=== PATIENT | female | born 1985 | race African-American/Black ===

== ENCOUNTER 2018-05-11 01:20 | Emergency (ER) | payer OTHER ==
[~2018-05-11] VITALS: Ht 165.1 cm; Wt 94.0 kg
[2018-05-11 01:22] VITALS: BP 139/80
[2018-05-11] MEDS ORDERED: MVI, ADULT NO.4 WITH VIT K 10 ML, FOLIC ACID SYRINGE for ER 1 MG, THIAMINE 100 MG in IV... IV ONE ×4 (01:30)
--- NOTE | 2018-05-11 01:30 | ED.ADGEN ---
Adult General Chief Complaint Chief Complaint ".. I was getting ready for bed.. and just started feeling like I was having an allergic reaction... I use my flonase nasal... and took some Ibuprofen... but I got to feeling worse..."..." I feel weak all over.. shaky like... " HPI HPI Patient is a 33 year old female who presents with above hx and complaints of felling bad. Pt. complaints of sore throat and like having allergy or allergic reaction. Pt. has been drinking at least 3 alcohol drinks a night for past 3 months. Pt. just stopped drinking tonight. Pt. has hx of allergies- seasonal. Pt. follows with Dr. South. Pt. has taken Flonase and Ibuprofen previously. Pt. has never stopped alcohol use abruptly before. Pt. denies any new drugs, foods or soaps. Pt. states she feels very agitated, shaking and weak. .Pt. does have hx of past anxiety disorder and insomnia. Review of Systems Review of Systems Constitutional: Denies fever or chills [] Eyes: Denies change in visual acuity, redness, or eye pain [] HENT: Complaints of nasal congestion . Complaints sore throat [] Respiratory: Denies cough or shortness of breath [] Cardiovascular: No additional information not addressed in HPI [] GI: Denies abdominal pain, , vomiting, bloody stools or diarrhea []Complaints of nausea. : Denies dysuria or hematuria [] Musculoskeletal: Denies back pain or joint pain [] Integument: Denies rash or skin lesions [] Neurologic: Complaints headache. Denies focal weakness or sensory changes [] Endocrine: Denies polyuria or polydipsia [] All other systems were reviewed and found to be within normal limits, except as documented in this note. Family History Family History Non-contributory Current Medications Current Medications Current Medications Medications (Trade) Dose Ordered Sig/Ayan Start Time Stop Time Status Last Admin Dose Admin Famotidine (Pepcid Vial) 20 mg 1X ONCE 05/11/18 02:30 05/11/18 02:31 DC Folic Acid (FOLIC ACID SYRINGE for ER) 5 mg STK-MED ONCE 05/11/18 01:35 05/11/18 01:36 DC Lorazepam (Ativan) 2 mg 1X ONCE 05/11/18 02:30 05/11/18 02:31 DC 05/11/18 02:25 2 MG Methylprednisolone Sodium Succinate (SOLU-Medrol 125MG VIAL) 125 mg 1X ONCE 05/11/18 02:30 05/11/18 02:31 DC 05/11/18 02:26 125 MG Multivitamins/ Minerals (Infuvite Adult) 10 ml STK-MED ONCE 05/11/18 01:35 05/11/18 01:36 DC Multivitamins/ Minerals 10 ml/ Folic Acid 1 mg/ Thiamine HCl 100 mg/Sodium Chloride 1,011.1 ml @ 1,000 mls/ hr 1X ONCE 05/11/18 01:30 05/11/18 02:30 DC 05/11/18 01:30 1,000 MLS/HR Potassium Chloride (KCl Oral Soln) 40 meq 1X ONCE 05/11/18 03:15 05/11/18 03:16 DC 05/11/18 03:13 40 MEQ Thiamine HCl 200 mg STK-MED ONCE 05/11/18 01:35 05/11/18 01:36 DC See Nursing for home meds Allergies Allergies Allergies Coded Allergies Type Severity Reaction Last Updated Verified No Known Drug Allergies 05/11/18 No Physical Exam Physical Exam Constitutional: , in acute emotional distress, non-toxic appearance. [] HENT: Normocephalic, atraumatic, bilateral external ears normal, oropharynx moist, no oral exudates, nose mild rhinorrhea. Eyes: PERRLA, EOMI, conjunctiva normal, no discharge. [] Neck: Normal range of motion, no tenderness, supple, no stridor. [] Cardiovascular: Tachycardia Heart rate regular rhythm, no murmur [] Lungs & Thorax: Bilateral breath sounds equal at apex no significant wheezing on auscultation [] Abdomen: Bowel sounds normal, soft, no tenderness, no masses, no pulsatile masses. Obese. Skin: Warm, dry, no erythema, no rash. [] Back: No tenderness, no CVA tenderness. [] Extremities: No tenderness, no cyanosis, no clubbing, ROM intact, no edema. [] Neurologic: Alert and oriented X 3, normal motor function, normal sensory function, no focal deficits noted. [] Psychologic: Affect very anxious, judgement normal, mood normal. [] Current Patient Data Vital Signs Vital Signs Date Time Temp Pulse Resp B/P (MAP) Pulse Ox O2 Delivery O2 Flow Rate FiO2 05/11/18 02:30 74 95 05/11/18 01:22 98.2 16 Room Air Lab Results Laboratory Tests Test 05/11/18 01:32 05/11/18 01:53 05/11/18 02:01 05/11/18 02:15 POC Urine HCG, Qualitative hcg negative (Negative) White Blood Count 7.3 x10^3/uL (4.0-11.0) Red Blood Count 4.58 x10^6/uL (3.50-5.40) Hemoglobin 14.1 g/dL (12.0-15.5) Hematocrit 40.9 % (36.0-47.0) Mean Corpuscular Volume 89 fL (79-100) Mean Corpuscular Hemoglobin 31 pg (25-35) Mean Corpuscular Hemoglobin Concent 34 g/dL (31-37) Red Cell Distribution Width 13.2 % (11.5-14.5) Platelet Count 299 x10^3/uL (140-400) Neutrophils (%) (Auto) 49 % (31-73) Lymphocytes (%) (Auto) 37 % (24-48) Monocytes (%) (Auto) 9 % (0-9) Eosinophils (%) (Auto) 5 % (0-3) H Basophils (%) (Auto) 1 % (0-3) Neutrophils # (Auto) 3.6 x10^3uL (1.8-7.7) Lymphocytes # (Auto) 2.7 x10^3/uL (1.0-4.8) Monocytes # (Auto) 0.6 x10^3/uL (0.0-1.1) Eosinophils # (Auto) 0.3 x10^3/uL (0.0-0.7) Basophils # (Auto) 0.1 x10^3/uL (0.0-0.2) Prothrombin Time 10.4 SEC (9.4-11.4) Prothrombin Time INR 1.0 (0.9-1.1) PTT 26 SEC (23-33) Sodium Level 136 mmol/L (136-145) Potassium Level 3.3 mmol/L (3.5-5.1) L Chloride Level 102 mmol/L (98-107) Carbon Dioxide Level 29 mmol/L (21-32) Anion Gap 5 (6-14) L Blood Urea Nitrogen 9 mg/dL (7-20) Creatinine 0.7 mg/dL (0.6-1.0) Estimated GFR (Cockcroft-Gault) 115.2 Glucose Level 99 mg/dL (70-99) Calcium Level 8.8 mg/dL (8.5-10.1) Magnesium Level 2.0 mg/dL (1.8-2.4) Ammonia 11 mcmol/L (11-34) Creatine Kinase 113 U/L (26-192) Creatine Kinase MB (Mass) < 0.5 ng/mL (0.0-3.6) Creatine Kinase MB Relative Index 0.4 % (0-4) Troponin I Quantitative < 0.017 ng/mL (0-0.055) MH-Rjw-Z-Type Natriuretic Peptide 54 pg/mL (0-124) Ethyl Alcohol Level < 10 mg/dL (0-10) Group A Streptococcus Rapid Negative (NEGATIVE) Urine Collection Type Unknown Urine Color Yellow Urine Clarity Clear Urine pH 7.0 Urine Specific [place] 1.010 Urine Protein Neg (NEG-TRACE) Urine Glucose (UA) Neg mg/dL (NEG) Urine Ketones (Stick) Neg mg/dL (NEG) Urine Blood Trace (NEG) Urine Nitrite Neg (NEG) Urine Bilirubin Neg (NEG) Urine Urobilinogen Dipstick 0.2 mg/dL (0.2 mg/dL) Urine Leukocyte Esterase Neg (NEG) Urine RBC Occ /HPF (0-2) Urine WBC Occ /HPF (0-4) Urine Squamous Epithelial Cells Few /LPF Urine Bacteria 0 /HPF (0-FEW) Urine Opiates Screen Neg (NEG) Urine Methadone Screen Neg (NEG) Urine Barbiturates Neg (NEG) Urine Phencyclidine Screen Neg (NEG) Urine Amphetamine/Methamphetamine Neg (NEG) Urine Benzodiazepines Screen Neg (NEG) Urine Cocaine Screen Neg (NEG) Urine Cannabinoids Screen Neg (NEG) Urine Ethyl Alcohol Neg (NEG) EKG EKG My interpretation EKG shows a sinus rhythm at 89 bpm. No findings of acute abnormalities. Radiology/Procedures Radiology/Procedures My interpretation chest x-ray shows no acute cardio pulmonary findings. Slightly enlarge cardiac silhouette. Some blunting Lt. riojas phrenic angle.[] Course & Med Decision Making Course & Med Decision Making Pertinent Labs and Imaging studies reviewed. (See chart for details). Discussed risks of chronic alcohol use. Patient encouraged to take a multivitamin and B complex. Patient currently declines admission wishes to be discharged home. Patient follow-up primary care. Review ED labs. Patient encourage return if any concerns. [] Final Impression Final Impression 1. Possible allergic reaction- 2. Suspect alcohol withdrawal presentation 3. Hypokalemia 4. History of anxiety disorder.[] Dragon Disclaimer Dragon Disclaimer This electronic medical record was generated, in whole or in part, using a voice recognition dictation system. ANA PABLO MD May 11, 2018 01:30
[2018-05-11] MEDS ORDERED: THIAMINE 200 MG/2 ML VIAL. IV ONE (01:35)
[2018-05-11] MEDS ORDERED: MVI, ADULT NO.4 WITH VIT K 10 ML VIAL IV ONE (01:35)
[2018-05-11] MEDS ORDERED: FOLIC ACID 5 MG/ML SYRINGE for ER IV ONE (01:35)
--- NOTE | 2018-05-11 01:43 | EKG ---
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
[2018-05-11 02:12] LABS: BASO # 0.1 x10^3/uL (0.0-0.2); BASO % 1 % (0-3); EOS # 0.3 x10^3/uL (0.0-0.7); EOS % 5 % (0-3); HEMATOCRIT 40.9 % (36.0-47.0); HEMOGLOBIN 14.1 g/dL (12.0-15.5); LYMPH # 2.7 x10^3/uL (1.0-4.8); LYMPH % 37 % (24-48); MEAN CORPUSCULAR HEMOGLOBIN 31 pg (25-35); MEAN CORPUSCULAR HGB CONC 34 g/dL (31-37); MEAN CORPUSCULAR VOLUME 89 fL (79-100); MONO # 0.6 x10^3/uL (0.0-1.1); MONO % 9 % (0-9); NEUT # 3.6 x10^3uL (1.8-7.7); NEUT % 49 % (31-73); PLATELET COUNT 299 x10^3/uL (140-400); RED BLOOD COUNT 4.58 x10^6/uL (3.50-5.40); RED CELL DISTRIBUTION WIDTH 13.2 % (11.5-14.5); WHITE BLOOD COUNT 7.3 x10^3/uL (4.0-11.0)
[2018-05-11] MEDS ORDERED: FAMOTIDINE 20 MG/2 ML VIAL IVP ONE (02:30)
[2018-05-11] MEDS ORDERED: LORazepam 2 MG/ML VIAL IV ONE (02:30)
[2018-05-11] MEDS ORDERED: methylPREDNISolone SOD SUCC PF 125 MG/2 ML VIAL. IV ONE (02:30)
[2018-05-11 02:37] LABS: ANION GAP 5 (6-14); BLOOD UREA NITROGEN 9 mg/dL (7-20); CALCIUM 8.8 mg/dL (8.5-10.1); CARBON DIOXIDE 29 mmol/L (21-32); CHLORIDE 102 mmol/L (98-107); CREATININE 0.7 mg/dL (0.6-1.0); GFR 115.2; GLUCOSE 99 mg/dL (70-99); POTASSIUM 3.3 mmol/L (3.5-5.1); SODIUM 136 mmol/L (136-145)
[2018-05-11 02:45] LABS: BARBITURATES NEG (NEG); BENZODIAZEPINES NEG (NEG); CANNABINOIDS NEG (NEG); COCAINE NEG (NEG); METHADONE NEG (NEG); OPIATES NEG (NEG); PHENCYCLIDINE NEG (NEG)
[2018-05-11 02:46] LABS: BACTERIA,URINE 0 /HPF (0-FEW); BILIRUBIN,URINE NEG (NEG); CLARITY,URINE CLEAR; COLOR,URINE YELLOW; GLUCOSE,URINE NEG (NEG); NITRITE,URINE NEG (NEG); RBC,URINE OCC /HPF (0-2); SQUAMOUS EPITHELIAL CELL,UR FEW /LPF; UROBILINOGEN,URINE 0.2 mg/dL (0.2 mg/dL); WBC,URINE OCC /HPF (0-4)
[2018-05-11 02:47] LABS: AMPHETAMINE/METHAMPHETAMINE NEG (NEG)
[2018-05-11] MEDS ORDERED: POTASSIUM CHLORIDE 20 MEQ/15 ML ORAL LIQUID. PO ONE (03:15)
--- NOTE | 2018-05-11 07:36 | RAD ---
Portable chest, 05/11/2018: HISTORY: Chest and throat tightness The heart size and pulmonary vascularity are normal. No pulmonary infiltrate is seen. There is no evidence of pleural fluid. IMPRESSION: No acute cardiopulmonary abnormality is detected. Electronically signed by: Masoud Morocho MD (05/11/2018 7:33 AM) [facility]
== END 2018-05-11 03:42 | disposition home or self-care (01) ==
LOC: ER 01:20
DX: E87.6 Hypokalemia (principal); J02.9 Acute pharyngitis, unspecified; R51 Headache; F41.9 Anxiety disorder, unspecified
CPT/HCPCS: 36415; 71045; 80048; 80307; 81001; 81025; 82140; 82553; 83735; 83880; 84484; 85025; 85610; 85730; 87070; 87880; 93005; 96365; 96375; 99285; G0480; J2060; J2930; G0479; J7030

== ENCOUNTER 2018-07-12 18:27 | Emergency (ER) | payer OTHER ==
[~2018-07-12] VITALS: Ht 165.1 cm; Wt 88.2 kg
[2018-07-12] MEDS ORDERED: PROMETHAZINE 25 MG TABLET. PO ONE (19:00)
[2018-07-12 19:10] LABS: BILIRUBIN,URINE NEG (NEG); CLARITY,URINE CLEAR; COLOR,URINE YELLOW; GLUCOSE,URINE NEG (NEG)
[2018-07-12 19:11] LABS: NITRITE,URINE NEG (NEG); UROBILINOGEN,URINE 0.2 mg/dL (0.2 mg/dL)
--- NOTE | 2018-07-12 19:22 | RAD ---
CT Head W/O Contrast: History: Headache, sensitivity to light Comparison: none Axial images were obtained without contrast. The galdamez and white matter appears normal and symmetrical for the patients age. There is no mass effect, extraaxial fluid collections or hydrocephalus. There is no gross bleed. There is no focal loss of galdamez-white matter distinction to suggest acute ischemia, i.e. stroke. Impression: No acute findings. RS Compliance Statement: One or more of the following individualized dose reduction techniques were utilized for this examination: 1. Automated exposure control 2. Adjustment of the mA and/or kV according to patient size 3. Use of iterative reconstruction technique Electronically signed by: Mane Ruiz III, MD (07/12/2018 7:18 PM) [facility]
[2018-07-12] MEDS ORDERED: PROM25TA10 PO (19:47)
--- NOTE | 2018-07-12 19:47 | PHYS DOC ---
Past History Past Medical History: Anxiety, Depression Past Surgical History: No Surgical History, Alcohol Use: Occasionally Additional Alcohol Information: PT stated she has slowed down her drinking a lot. Drug Use: None Adult General Chief Complaint Chief Complaint: HEADACHE HPI HPI Patient is a 33 year old female who presents with complaint of headache. The patient states that she has been having recurrent headaches over the past month. Patient notes that she has history of anxiety disorder and was recently started on Lexapro therapy. Patient states she took her first dose today. Patient states that while sitting and watching a movie she started to feel her heart rate increase. Patient states this progressed to headache, neck tightness , numbness in her tongue, and tremors. EMS was called and patient was brought to the emergency department for further evaluation. Patient states that this time her symptoms have improved however she is still experiencing her headache. Patient states that this is a frontal headache and is dull in nature. Patient has associated nausea but no vomiting and no fever. The patient states that she took Tylenol 2 hours ago. Denies any difficulty with speech or swallowing, unilateral weakness, or vision loss. Patient states that she has had previous blood work and an that showed a mild decrease in potassium but no other abnormalities. Review of Systems Review of Systems Constitutional: Denies fever or chills [] Eyes: Denies change in visual acuity, redness, or eye pain [] HENT: Denies nasal congestion or sore throat [] Respiratory: Denies cough or shortness of breath [] Cardiovascular: Palpitations, denies chest pain[] GI: Nausea, denies abdominal pain, vomiting, bloody stools or diarrhea [] : Denies dysuria or hematuria [] Musculoskeletal: Denies back pain or joint pain [] Integument: Denies rash or skin lesions [] Neurologic: Headache, numbness to tongue currently resolved, denies focal weakness[] All other systems were reviewed and found to be within normal limits, except as documented in this note. Current Medications Current Medications Current Medications Medications (Trade) Dose Ordered Sig/Ayan Start Time Stop Time Status Last Admin Dose Admin Promethazine HCl (Phenergan) 25 mg 1X ONCE 07/12/18 19:00 07/12/18 19:01 DC 07/12/18 19:15 25 MG Allergies Allergies Allergies Coded Allergies Type Severity Reaction Last Updated Verified No Known Drug Allergies 05/11/18 No Physical Exam Physical Exam Constitutional: Well developed, well nourished, afebrile, appears in mild discomfort. [] HENT: Normocephalic, atraumatic, bilateral external ears normal, oropharynx moist, no oral exudates, nose normal. [] Eyes: PERRLA, EOMI, conjunctiva normal, no discharge. [] Neck: Normal range of motion, no tenderness, supple, no stridor. [] Cardiovascular:Heart rate regular rhythm, no murmur [] Lungs & Thorax: Bilateral breath sounds clear to auscultation [] Abdomen: Bowel sounds normal, soft, no tenderness, no masses, no pulsatile masses. [] Skin: Warm, dry, no erythema, no rash. [] Back: No tenderness, no CVA tenderness. [] Extremities: No tenderness, no cyanosis, no clubbing, ROM intact, no edema. [] Neurologic: Alert and oriented X 3, normal motor function, normal sensory function, no focal deficits noted. [] Current Patient Data Vital Signs Vital Signs Date Time Temp Pulse Resp B/P (MAP) Pulse Ox O2 Delivery O2 Flow Rate FiO2 07/12/18 18:35 98.4 69 18 97 Room Air Lab Results Laboratory Tests Test 07/12/18 18:12 07/12/18 18:53 POC Urine HCG, Qualitative hcg negative (Negative) Urine Collection Type Void Urine Color Yellow Urine Clarity Clear Urine pH 6.0 Urine Specific [place] <=1.005 Urine Protein Neg (NEG-TRACE) Urine Glucose (UA) Neg mg/dL (NEG) Urine Ketones (Stick) Neg mg/dL (NEG) Urine Blood Trace (NEG) Urine Nitrite Neg (NEG) Urine Bilirubin Neg (NEG) Urine Urobilinogen Dipstick 0.2 mg/dL (0.2 mg/dL) Urine Leukocyte Esterase Neg (NEG) EKG EKG Rhythm strip interpretation by me: Heart rate 69, sinus rhythm, no ectopy[] Radiology/Procedures Radiology/Procedures [address] [address] IMAGING REPORT Signed PATIENT: RASHID KIRAN ACCOUNT: [id number] : 1985 LOCATION: ER AGE: 33 SEX: F EXAM STATUS: REG ER ORD. PHYSICIAN: ANGELES CRAIG MD REASON: Headache, sensitivity to light PROCEDURE: CT HEAD WO CONTRAST CT Head W/O Contrast: History: Headache, sensitivity to light Comparison: none Axial images were obtained without contrast. The galdamez and white matter appears normal and symmetrical for the patients age. There is no mass effect, extraaxial fluid collections or hydrocephalus. There is no gross bleed. There is no focal loss of galdamez-white matter distinction to suggest acute ischemia, i.e. stroke. Impression: No acute findings. RS Compliance Statement: One or more of the following individualized dose reduction techniques were utilized for this examination: 1. Automated exposure control 2. Adjustment of the mA and/or kV according to patient size 3. Use of iterative reconstruction technique Electronically signed by: Jessica Morales III, MD (07/12/2018 7:18 PM) [facility] DICTATED AND SIGNED BY: JESSICA MORALES III, MD DATE: 07/12/181916 CC: ANGELES CRAIG MD; PCP,UNKNOWN ~ [] Course & Med Decision Making Course & Med Decision Making Pertinent Labs and Imaging studies reviewed. (See chart for details) Head CT negative. Patient given Phenergan in the emergency department. Vital signs are stable and patient's symptoms are improving at this time. Etiology of patient's headache does not appear to be acute. The patient's anxiety disorder seems to be contributing to the patient's symptoms. Patient will be discharged with prescription for Phenergan to take at home. Advised follow-up with neurology in 1 week for reevaluation. Advised return to emergency department for any worsening symptoms. Patient was understanding and agreement with treatment plan. Dragon Disclaimer Dragon Disclaimer This electronic medical record was generated, in whole or in part, using a voice recognition dictation system. Departure Departure: Impression: Primary Impression: Headache Additional Impression: Anxiety disorder Disposition: 01 HOME, SELF-CARE Condition: IMPROVED Referrals: PCP,UNKNOWN (PCP) LILLY FRANKEL MD Patient Instructions: Anxiety and Panic Attacks, General Headache Without Cause Additional Instructions: Return to the emergency department for any worsening symptoms. Scripts Promethazine Hcl (PROMETHAZINE HCL) 25 Mg Tablet 1 TAB PO Q6HRS PRN for NAUSEA, #30 TAB Prov: ANGELES CRAIG MD 07/12/18 Problem Qualifiers Primary Impression: Headache Headache type: unspecified Headache chronicity pattern: episodic headache Intractability: not intractable Qualified Codes: R51 - Headache Additional Impression: Anxiety disorder Anxiety disorder type: unspecified anxiety disorder Qualified Codes: F41.9 - Anxiety disorder, unspecified ANGELES CRAIG MD Jul 12, 2018 19:47
[2018-07-12 19:51] VITALS: BP 145/78
== END 2018-07-12 19:53 | disposition home or self-care (01) ==
LOC: ER 18:27
DX: F41.9 Anxiety disorder, unspecified (principal); R51 Headache; F32.9 Major depressive disorder, single episode, unspecified
CPT/HCPCS: 70450; 81003; 81025; 99284; Q0169

== ENCOUNTER 2019-04-27 17:10 | Emergency (ER) | payer OTHER ==
[~2019-04-27] VITALS: Ht 165.1 cm; Wt 86.2 kg
[~2019-04-27 17:10] MED LIST: PROM25TA10 PO
--- NOTE | 2019-04-27 17:40 | PHYS DOC ---
Past History Past Medical History: Anxiety, Depression (ISHAAN FUENTES Jr. DO) Past Surgical History: No Surgical History, (ISHAAN FUENTES Jr. DO) Alcohol Use: Occasionally Drug Use: None (ISHAAN FUENTES Jr., DO) Adult General Chief Complaint Chief Complaint: [facility] HPI Patient is a 34-year-old female who presents with complaint of strange headache that she indicates is in the middle of her forehead and extends into the roof of her mouth. She indicates that she has tingling and burning sensation to her tongue and has an abnormal taste in her mouth. Patient rates pain as fairly severe in her head. She indicates that she has a history of headaches but states that this is different and more severe than other headaches she has had. She denies any fever, nausea or vomiting. She also denies any visual changes. Patient states that nothing is improving her symptoms.[] (ISHAAN FUENTES Jr. DO) Review of Systems Review of Systems Constitutional: Denies fever or chills [] Eyes: Denies change in visual acuity, redness, or eye pain [] Respiratory: Denies cough or shortness of breath [] Cardiovascular: No additional information not addressed in HPI [] GI: Denies abdominal pain, nausea, vomiting or diarrhea [] Neurologic: Complains of headache without focal weakness. [] All other systems were reviewed and found to be within normal limits, except as documented in this note. (ISHAAN FUENTES Jr. DO) Allergies Allergies Allergies Coded Allergies Type Severity Reaction Last Updated Verified No Known Drug Allergies 05/11/18 No (ISHAAN FUENTES Jr. DO) Physical Exam Physical Exam Constitutional: Well developed, well nourished, no acute distress, non-toxic appearance. [] HENT: Normocephalic, atraumatic, bilateral external ears normal, pharyngeal erythema is noted. [] Eyes: PERRLA, EOMI, conjunctiva normal, no discharge. [] Neck: Normal range of motion, no tenderness, supple, cervical lymphadenopathy is noted. [] Cardiovascular:Heart rate regular rhythm, no murmur [] Lungs & Thorax: Bilateral breath sounds clear to auscultation [] Extremities: No tenderness, no cyanosis, no clubbing, ROM intact. [] Neurologic: Alert and oriented X 3, no focal deficits noted. [] (ISHAAN FUENTES Jr. DO) EKG EKG [] (ISHAAN FUENTES Jr. DO) Radiology/Procedures Radiology/Procedures [] (ISHAAN FUENTES Jr. DO) Impressions: CT brain without contrast, CT maxillofacial without contrast History: Severe headache, mouth pain with burning sensation CT brain CT scan of the brain was done without contrast. There is a mucous retention cyst in the right maxillary sinus. Remaining sinuses are clear. Mastoids are normally aerated. There is no intracranial hemorrhage or mass. There is no shift of the midline. An acute CVA is not identified. Ventricles are normal in size. IMPRESSION: 1. No intracranial hemorrhage or mass or acute finding noted. End impression CT FACIAL BONES: Axial CT images were obtained to the facial bones. Sagittal and coronal reconstructed images were reviewed. Parotid and submandibular glands are unremarkable. There is no adenopathy in the upper neck. There is mild mucosal thickening in the maxillary antrum on each side and small mucous retention cyst on the right. There is slight mucosal thickening in 2 or 3 ethmoid air cells. Sphenoid and frontal sinuses are clear. There is no facial fracture. Mandible appears intact. Orbits are unremarkable. There is degenerative disc disease and spurring in the cervical spine with disc space narrowing at C3-4, C4-5 and C5-6 with spurring at those levels. IMPRESSION: 1. Degenerative disc disease and spurring in the cervical spine. 2. Mild mucosal thickening in the maxillary and ethmoid sinuses.. 3. No facial fracture or bony destructive process noted in the facial bones. 4. No mass or adenopathy noted. (BRENNEN CRAWFORD DO) Course & Med Decision Making Course & Med Decision Making Pertinent Labs and Imaging studies reviewed. (See chart for details) Patient moved to room upon arrival was evaluated by your medical staff after which a CT of the head and maxillofacial was ordered. At this time study is pending and patient is being signed out to the oncoming ER physician, Dr. Crawford, at 6:00 PM. (ISHAAN FUENTES Jr. DO) Course & Med Decision Making The patient's CT is negative for acute findings. Her strep is negative. She is not . The patient has had greater than 50% improvement in her symptoms. 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 If she continues to have headaches she may also want to see neurology. The patient is in agreement with this plan. She is stable for discharge at this time. (BRENNEN CRAWFORD DO) Dragon Disclaimer Dragon Disclaimer This electronic medical record was generated, in whole or in part, using a voice recognition dictation system. (ISHAAN FUENTES Jr. DO) Departure Departure: Impression: Primary Impression: Tension headache Disposition: HOME, SELF-CARE Condition: STABLE Referrals: PCP,NO (PCP) Patient Instructions: Tension Headache, [id number] ISHAAN FUENTES Jr., DO Apr 27, 2019 17:40 BRENNEN CRAWFORD DO Apr 27, 2019 18:30
[2019-04-27] MEDS ORDERED: SUMAtriptan SUCC 6 MG/0.5 ML VIAL SQ ONE (17:45)
--- NOTE | 2019-04-27 18:15 | RAD ---
CT brain without contrast, CT maxillofacial without contrast History: Severe headache, mouth pain with burning sensation CT brain CT scan of the brain was done without contrast. There is a mucous retention cyst in the right maxillary sinus. Remaining sinuses are clear. Mastoids are normally aerated. There is no intracranial hemorrhage or mass. There is no shift of the midline. An acute CVA is not identified. Ventricles are normal in size. IMPRESSION: 1. No intracranial hemorrhage or mass or acute finding noted. End impression CT FACIAL BONES: Axial CT images were obtained to the facial bones. Sagittal and coronal reconstructed images were reviewed. Parotid and submandibular glands are unremarkable. There is no adenopathy in the upper neck. There is mild mucosal thickening in the maxillary antrum on each side and small mucous retention cyst on the right. There is slight mucosal thickening in 2 or 3 ethmoid air cells. Sphenoid and frontal sinuses are clear. There is no facial fracture. Mandible appears intact. Orbits are unremarkable. There is degenerative disc disease and spurring in the cervical spine with disc space narrowing at C3-4, C4-5 and C5-6 with spurring at those levels. IMPRESSION: 1. Degenerative disc disease and spurring in the cervical spine. 2. Mild mucosal thickening in the maxillary and ethmoid sinuses.. 3. No facial fracture or bony destructive process noted in the facial bones. 4. No mass or adenopathy noted. PQRS Compliance Statement: One or more of the following individualized dose reduction techniques were utilized for this examination: 1. Automated exposure control 2. Adjustment of the mA and/or kV according to patient size 3. Use of iterative reconstruction technique PQRS Compliance Statement: One or more of the following individualized dose reduction techniques were utilized for this examination: 1. Automated exposure control 2. Adjustment of the mA and/or kV according to patient size 3. Use of iterative reconstruction technique Electronically signed by: Dl Elise MD (04/27/2019 6:11 PM) [facility]
[2019-04-27 18:41] LABS: BACTERIA,URINE FEW /HPF (0-FEW); BILIRUBIN,URINE NEG (NEG); CLARITY,URINE CLEAR; COLOR,URINE AMBER; GLUCOSE,URINE NEG (NEG); NITRITE,URINE NEG (NEG); SQUAMOUS EPITHELIAL CELL,UR OCC /LPF; UROBILINOGEN,URINE 0.2 mg/dL (0.2 mg/dL); WBC,URINE 0 /HPF (0-4)
[2019-04-27 18:54] VITALS: BP 143/56
== END 2019-04-27 18:55 | disposition home or self-care (01) ==
LOC: ER 17:10
DX: G44.209 Tension-type headache, unspecified, not intractable (principal); F41.9 Anxiety disorder, unspecified; F32.9 Major depressive disorder, single episode, unspecified; M50.31 Other cervical disc degeneration, high cervical region; M50.321 Other cervical disc degeneration at C4-C5 level; M50.322 Other cervical disc degeneration at C5-C6 level
CPT/HCPCS: 70450; 70486; 81001; 81025; 87070; 87880; 96372; 99285; J3030

== ENCOUNTER 2020-06-03 13:57 | Emergency (ER) | payer OTHER ==
[~2020-06-03] VITALS: Ht 177.8 cm; Wt 88.2 kg
[2020-06-03] MEDS ORDERED: ASPIRIN CHEWABLE 81 MG TABLET. PO ONE (14:15)
--- NOTE | 2020-06-03 14:30 | PHYS DOC ---
Past History Past Medical History: No Pertinent History Past Surgical History: Alcohol Use: Occasionally Drug Use: None General Adult EDM: Chief Complaint: CHEST PAIN HPI: HPI: Patient is a 35-year-old otherwise healthy female who presents with chest discomfort. She states this started this morning. She feels like it is a pressure on her chest. She denies any nausea or vomiting. She denies any cough or congestion. She denies hemoptysis. She denies any fever chills or sweats. She denies dyspnea on exertion. She states she is nervous that she was exposed to somebody with COVID recently. [] Review of Systems: Review of Systems: Constitutional: Denies fever or chills Eyes: Denies change in visual acuity HENT: Denies nasal congestion or sore throat Respiratory: Denies cough or shortness of breath Cardiovascular: Per HPI GI: Denies abdominal pain, nausea, vomiting, bloody stools or diarrhea : Denies dysuria Musculoskeletal: Denies back pain or joint pain Integument: Denies rash Neurologic: Denies headache, focal weakness or sensory changes Endocrine: Denies polyuria or polydipsia Lymphatic: Denies swollen glands Psychiatric: Denies depression or anxiety Heart Score: HEART Score for Chest Pain: HEART Score for Chest Pain Response (Comments) Value History Slighlty/Non-Suspicious 0 ECG Normal 0 Age < 45 0 Risk Factors No Risk Factors 0 Troponin < Normal Limit 0 Total 0 Risk Factors: Risk Factors: DM, Current or recent (<one month) smoker, HTN, HLP, family history of CAD, obesity. Risk Scores: Score 0 - 3: 2.5% MACE over next 6 weeks - Discharge Home Score 4 - 6: 20.3% MACE over next 6 weeks - Admit for Clinical Observation Score 7 - 10: 72.7% MACE over next 6 weeks - Early Invasive Strategies Current Medications: Current Meds: Current Medications Medications (Trade) Dose Ordered Sig/Ayan Start Time Stop Time Status Last Admin Dose Admin Aspirin (Aspirin Chewable) 324 mg 1X ONCE 06/03/20 14:15 06/03/20 14:21 DC Allergies: Allergies: Allergies Coded Allergies Type Severity Reaction Last Updated Verified No Known Drug Allergies 05/11/18 No Physical Exam: PE: Constitutional: Well developed, well nourished, no acute distress, non-toxic appearance. [] HENT: Normocephalic, atraumatic, bilateral external ears normal, oropharynx moist, no oral exudates, nose normal. [] Eyes: PERRLA, EOMI, conjunctiva normal, no discharge. [] Neck: Normal range of motion, no tenderness, supple, no stridor. [] Cardiovascular:Heart rate regular rhythm, no murmur [] Lungs & Thorax: Bilateral breath sounds clear to auscultation [] Abdomen: Bowel sounds normal, soft, no tenderness, no masses, no pulsatile masses. [] Skin: Warm, dry, no erythema, no rash. [] Back: No tenderness, no CVA tenderness. [] Extremities: No tenderness, no cyanosis, no clubbing, ROM intact, no edema. [] Neurologic: Alert and oriented X 3, normal motor function, normal sensory function, no focal deficits noted. [] Psychologic: Anxious [] EKG: EKG: EKG: Normal sinus rhythm rate of [address]-T changes [] Radiology/Procedures: Radiology/Procedures: []PROCEDURE: CHEST AP ONLY EXAM: Chest, single view. HISTORY: Chest pain. COMPARISON: None. FINDINGS: A frontal view of the chest is obtained. There is no infiltrate, pleural effusion or pneumothorax. The heart is normal in size IMPRESSION: No acute pulmonary finding. Course & Med Decision Making: Course & Med Decision Making Pertinent Labs and Imaging studies reviewed. (See chart for details) [ED course: Evaluation reveals a 35-year-old otherwise healthy female who presents with some atypical sounding chest discomfort. Her EKG, lab work and chest x-ray are all normal. I suspect this chest pain is noncardiac in nature.] Dragon Disclaimer: Dragon Disclaimer: This electronic medical record was generated, in whole or in part, using a voice recognition dictation system. Departure Departure: Impression: Primary Impression: Chest pain Qualified Codes: R07.9 - Chest pain, unspecified Disposition: HOME/RESIDENCE PRIOR TO ADM Condition: STABLE Referrals: ERNST PERES MD (PCP) Patient Instructions: Chest Pain (Nonspecific) Additional Instructions: Return to the emergency department with any new or concerning symptoms Justification of Admission: Justification of Admission: Justification of Admission Dx: RIGOBERTO Bassett DO Jun 03, 2020 14:30
[2020-06-03 14:40] VITALS: BP 160/103
--- NOTE | 2020-06-03 14:43 | RAD ---
EXAM: Chest, single view. HISTORY: Chest pain. COMPARISON: None. FINDINGS: A frontal view of the chest is obtained. There is no infiltrate, pleural effusion or pneumothorax. The heart is normal in size IMPRESSION: No acute pulmonary finding. Electronically signed by: Ashely Bray MD (06/03/2020 2:40 PM) [id number]
--- NOTE | 2020-06-03 14:44 | EKG ---
[address] [address] Test Date: 2020-06-03 Test Time: 14:01:47 Pat Name: RASHID KIRAN Department: Room: Gender: F Bin Filler: : 1985 Requested By: RIGOBERTO BAUMAN Order Number: [id number] Reading MD: Measurements Intervals [place] Rate: 78 P: 35 TX: 140 QRS: 5 QRSD: 86 T: 5 QT: 376 QTc: 432 Interpretive Statements SINUS RHYTHM NORMAL ECG RI6.02 No previous ECG available for comparison
[2020-06-03 14:49] LABS: BASO # 0.1 x10^3/uL (0.0-0.2); BASO % 1 % (0-3); EOS # 0.2 x10^3/uL (0.0-0.7); EOS % 2 % (0-3); HEMATOCRIT 40.6 % (36.0-47.0); HEMOGLOBIN 13.9 g/dL (12.0-15.5); LYMPH # 2.7 x10^3/uL (1.0-4.8); LYMPH % 26 % (24-48); MEAN CORPUSCULAR HEMOGLOBIN 31 pg (25-35); MEAN CORPUSCULAR HGB CONC 34 g/dL (31-37); MEAN CORPUSCULAR VOLUME 92 fL (79-100); MONO # 0.8 x10^3/uL (0.0-1.1); MONO % 8 % (0-9); NEUT # 6.6 x10^3uL (1.8-7.7); NEUT % 63 % (31-73); PLATELET COUNT 294 x10^3/uL (140-400); RED BLOOD COUNT 4.43 x10^6/uL (3.50-5.40); RED CELL DISTRIBUTION WIDTH 12.7 % (11.5-14.5); WHITE BLOOD COUNT 10.4 x10^3/uL (4.0-11.0)
[2020-06-03 14:52] LABS: BARBITURATES NEG (NEG); BENZODIAZEPINES NEG (NEG); CANNABINOIDS NEG (NEG); COCAINE NEG (NEG); METHADONE NEG (NEG); OPIATES NEG (NEG); PHENCYCLIDINE NEG (NEG)
[2020-06-03 14:53] LABS: CALCIUM 9.5 mg/dL (8.5-10.1); CREATININE 0.8 mg/dL (0.6-1.0); GFR 97.7; POTASSIUM 3.6 mmol/L (3.5-5.1)
[2020-06-03 14:56] LABS: AMPHETAMINE/METHAMPHETAMINE NEG (NEG)
[2020-06-03 15:06] LABS: ALBUMIN 3.8 g/dL (3.4-5.0); TOTAL BILIRUBIN 0.4 mg/dL (0.2-1.0); TOTAL PROTEIN 7.7 g/dL (6.4-8.2)
== END 2020-06-03 15:23 | disposition home or self-care (01) ==
LOC: ER 13:57
DX: R07.89 Other chest pain (principal)
CPT/HCPCS: 36415; 71045; 80053; 80307; 83880; 84484; 85025; 93005; 99285